=== PATIENT | male | born 1965 | race Caucasian/White ===

== ENCOUNTER 2017-05-20 09:12 | Emergency (ER) | payer SELFPAY ==
[~2017-05-20] VITALS: Ht 177.8 cm; Wt 80.0 kg
[2017-05-20 09:20] VITALS: BP 211/95; PULSE 76; RESP 18; TEMP 97.8; O2SAT 98
[2017-05-20] MEDS ORDERED: SODIUM CHLORIDE 0.9% FLUSH 10 ML FLUSH IV FLUSH PRN (09:30)
[2017-05-20] MEDS ORDERED: SODIUM CHLOR 0.9% 1000 ML INJ 1,000 ML IV SCH (09:30)
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
[2017-05-20] MEDS ORDERED: SILV1CRE20 TOPICAL (09:43)
[2017-05-20] MEDS ORDERED: CEPH-460 PO (09:43)
[2017-05-20] MEDS ORDERED: DIFL150T PO (09:43)
== END 2017-05-20 10:05 | disposition home or self-care (01) ==
LOC: NEPD 09:12
DX: B35.9 Dermatophytosis, unspecified (principal); T23.272A Burn of second degree of left wrist, initial encounter; X10.2XXA Contact with fats and cooking oils, initial encounter
CPT/HCPCS: 16020; 96374